=== PATIENT | male | born 1990 | race African-American/Black ===

== ENCOUNTER 2020-10-24 09:55 | Emergency (ER) | payer MEDICAID ==
[~2020-10-24] VITALS: Ht 185.4 cm; Wt 163.6 kg
[2020-10-24] MEDS ORDERED: IBUPROFEN 600 MG TABLET PO ONE (10:45)
[2020-10-24 11:54] VITALS: BP 157/75
== END 2020-10-24 12:30 | disposition home or self-care (01) ==
LOC: EMS 09:55
DX: S83.91XA Sprain of unspecified site of right knee, initial encounter (principal); X58.XXXA Exposure to other specified factors, initial encounter; Y93.89 Activity, other specified; Y92.89 Other specified places as the place of occurrence of the external cause; Y99.8 Other external cause status
CPT/HCPCS: 29505; 99283